=== PATIENT | male | born 1990 | race Caucasian/White ===

== ENCOUNTER 2018-06-20 14:07 | Emergency (ER) | payer BC ==
[~2018-06-20] VITALS: Ht 193 cm; Wt 94.5 kg
[2018-06-20 14:10] VITALS: TEMP 98.1
[2018-06-20 15:40] LABS: ARTERIAL BLD GAS TCO2 CT 23.8; ARTERIAL BLOOD GAS BASE EXCESS -1.9 (-2-2); ARTERIAL BLOOD GAS HCO3 22.6 meq/L (22-26); ARTERIAL BLOOD GAS PCO2 38.1 mmHg (35-45); ARTERIAL BLOOD GAS pH 7.39 (7.35-7.45)
[2018-06-20 15:58] VITALS: BP 120/61; PULSE 71
== END 2018-06-20 15:58 | disposition home or self-care (01) ==
LOC: COL.ER 14:07
PROVIDERS: Nurse Practitioner
DX: T59.91XA Toxic effect of unspecified gases, fumes and vapors, accidental (unintentional), initial encounter (principal); F17.210 Nicotine dependence, cigarettes, uncomplicated; Y92.009 Unspecified place in unspecified non-institutional (private) residence as the place of occurrence of the external cause
CPT/HCPCS: J1100; J7030